=== PATIENT | male | born 1980 | race Caucasian/White ===

== ENCOUNTER → 2017-05-30 | Outpatient (CLI) | payer OTHER ==
[~2017-05-30] MED LIST: DEXILANT60 MG PO; EFFEXOR75 MG PO; LOFIBRA134 MG PO; VITAMIN B121 TA1; VITAMIN D32000 IU PO
[2017-06-02 08:41] LABS: Testosterone, Total, LC/MS 1324.2 ng/dL (264.0-916.0)
== END ==
LOC: CARL-LAB 08:47
PROVIDERS: Urology
DX: E29.1 Testicular hypofunction (principal)